=== PATIENT | male | born 1950 | race Caucasian/White ===

== ENCOUNTER → 2017-06-28 | Outpatient (CLI) | payer MEDICARE, OTHER ==
[~2017-06-28] VITALS: Ht 185.4 cm; Wt 94.3 kg
[~2017-06-28] MED LIST: ALDACTONE25 MG PO; APIDRA SOL100 UNIT/1 SUBQ; COREG6.25 MG PO; COUMADIN 5 MG TA5 M1 PO; DIGOXIN125 MCG PO; DURAGESIC25 MCG/HR TRANSDERM; FISH OIL 1,001000 M2 PO; FLOMAX0.4 MG PO; LASIX 20 MG TAB20 MG PO; MAG-OXIDE400 MG PO; METFORMIN HCL500 MG PO; NEPHROCAPS SOFT1 CAP PO; PLAVIX 75 MG TA75 MG PO; PRINIVIL5 MG PO; SIMVASTATIN40 MG PO; TOUJEO SOL300 UNIT/1 SUBQ; VITAMIN D2000 UNIT PO; ZOLOFT50 MG PO
[2017-06-28 10:38] VITALS: BP 141/84
[2017-06-28 10:54] LABS: ABSOLUTE BASOPHILS 0.1 thou/uL (0.0-0.2); ABSOLUTE EOSINOPHILS 0.3 thou/uL (0.0-0.7); ABSOLUTE LYMPHOCYTES 1.8 thou/uL (0.8-5.3); ABSOLUTE MONOCYTES 0.5 thou/uL (0.0-1.2); ABSOLUTE NEUTROPHILS 7.4 thou/uL (1.6-8.1); BASOPHILS 1.1 %; EOSINOPHILS 2.8 %; HEMATOCRIT 40.4 % (42.0-52.0); HEMOGLOBIN 13.6 gm/dL (14.0-18.0); LYMPHOCYTES 18.1 %; MCH 28.9 pg (26.0-34.0); MCHC 33.8 g/dL (28.0-37.0); MCV 85.5 fL (80.0-100.0); MONOCYTES 5.3 %; MPV 7.1 fl. (7.2-11.1); NUCLEATED RBCS 0 /100WBC; PLATELET COUNT* 190 thou/uL (150-400); POLYS 72.7 %; RBC 4.72 mil/uL (4.50-6.00); RDW-CV 14.5 % (10.5-14.5); WBC 10.2 thou/uL (4.0-11.0)
[2017-06-28 11:01] LABS: CALCIUM 9.2 mg/dL (8.5-10.1); CREATININE 0.9 mg/dL (0.6-1.3); POTASSIUM 4.5 mmol/L (3.5-5.1)
[2017-06-28 11:03] LABS: APTT 27.5 Seconds (25.0-31.3); INR 1.2; PROTIME 11.4 Seconds (9.20-11.50)
[2017-06-28 13:11] VITALS: BP 122/83
[2017-06-28 13:46] VITALS: BP 132/76
[2017-06-28 14:00] VITALS: BP 123/76
--- NOTE | 2017-06-28 15:39 | EKG ---
[place] [address] ELECTROCARDIOGRAM REPORT Name: TRAE NEAL Room: [facility]#: [id number] Admission: 06/28/17 Attend Phys: Giovanni Zhang MD Discharge: Date of : 54 Report #: [id number] THIS REPORT FOR: //name// [facility] Test Date: 2017-06-28 Test Time: 10:30:59 Pat Name: TRAE NEAL Department: Room: Gender: M Clinical Applications Manager: : 1950 Requested By: Giovanni Zhang Order Number: [id number] Reading MD: Giovanni Zhang Measurements Intervals [place] Rate: 87 P: 32 VT: 148 QRS: 202 QRSD: 120 T: 52 QT: 393 QTc: 473 Interpretive Statements Atrial-sensed ventricular-paced rhythm No further analysis attempted due to paced rhythm No previous ECG available for comparison Electronically Signed On 06-28-2017 15:39:10 [employer] SERV[employer]PERVIS[employer] by Giovanni Zhang [email or web address] <ELECTRONICALLY SIGNED> By: Giovanni Zhang MD, [facility] 06/28/17 1539 1030 1030 Giovanni Zhang MD, FACC /EPI
--- NOTE | 2017-07-26 18:11 | CARD ---
[address] [address] CARDIAC CATH REPORT Name: TRAE NEAL Room: [facility] Yadira#: [id number] Admission: 06/28/17 Attend Phys: Giovanni Zhang MD Discharge: Date of : 54 Report #: [id number] THIS REPORT FOR: //name// APPROVED REPORT Study performed: 06/28/2017 12:00:31 Patient Status: Out-Patient Room #: Exam: biventricular pacing ICD generator replacement Indications: biventricular ICD generator at elective replacement The patient is a 66 year-old male with a history of ischemic cardiomyopathy status post biventricular ICD placement. Implanted Devices: Biotronik Itevia 7 HFT DF1 model #978546, serial #[id number] Explanted Devices: Medtronic Protecta XT [employer]Y MEMBER-D model number D3-1-4 [facility] serial number [id number] Procedure After informed consent was obtained the patient was brought to the cardiac catheterization lab. The area of the left chest was prepped and draped in sterile fashion. Local anesthesia was achieved with 1% lidocaine. Next after an initial incision was made the existing pulse generator was explanted using electrocautery and blunt dissection. The generator was removed from the RV LV and atrial leads. The leads were checked for adequate sensing and thresholds. The device pocket was flushed with antibiotic solution. Next the new biventricular ICD pulse generator was attached to the leads. The pulse generator and redundant leads were then replaced within the generator pocket. The deep tissues were closed using interrupted stitches of 2-0 Vicryl. The skin incision was then closed with a single subcuticular stitch of 4-0 Vicryl. Several Steri-Strips were placed across the incision. A sterile Telfa pad was then covered with a Tegaderm. The patient tolerated procedure without complication. Findings The sensed R-wave was 6.60 mV. The sensed P-wave was 2.0 mV. The sensed LV wave was 24.4 mV. The right ventricular pacing threshold was 0.9 V at 0.40 ms. The right the LV lead pacing threshold was 0.9 V at 0.40 ms. The RV pacing impedance was 493 ohms. The atrial pacing impedance was 391 ohms. The LV pacing impedance was 594 ohms. VF detection rate to 150 beats per minute[place] [address] CARDIAC CATH REPORT Name: TRAE NEAL Room: [facility]#: [id number] Admission: 06/28/17 Attend Phys: Giovanni Zhang MD Discharge: Date of : 54 Report #: [id number] pacing times one followed by 40 J shocks times a day. Fast VT detection rate 176 bpm. Fast VT therapies burst pacing 3, ramp pacing 3, 40 J shock times a day. Slow VT detection rate 154 bpm. Slow VT therapy monitor only. Conclusion 1. Biventricular ICD generator at elective replacement. 2. Successful replacement of biventricular ICD generator. Recommendations 1. Follow-up site check in one week. <ELECTRONICALLY SIGNED> By: Giovanni Zhang MD, FACC 07/26/171809 09 09Michaepete Zhang MD, FACC /INF
== END | disposition home or self-care (01) ==
LOC: EDBD 09:32 → M.CL 09:32
PROVIDERS: Internal Medicine Cardiovascular Disease
DX: Z45.02 Encounter for adjustment and management of automatic implantable cardiac defibrillator (principal); I25.5 Ischemic cardiomyopathy; I11.0 Hypertensive heart disease with heart failure; I50.22 Chronic systolic (congestive) heart failure; E78.5 Hyperlipidemia, unspecified; E11.9 Type 2 diabetes mellitus without complications; G47.33 Obstructive sleep apnea (adult) (pediatric); Z95.810 Presence of automatic (implantable) cardiac defibrillator; Z98.890 Other specified postprocedural states; Z95.5 Presence of coronary angioplasty implant and graft; Z79.899 Other long term (current) drug therapy; Z88.8 Allergy status to other drugs, medicaments and biological substances; Z79.4 Long term (current) use of insulin; Z79.01 Long term (current) use of anticoagulants